=== PATIENT | female | born 1970 | race Caucasian/White ===

== ENCOUNTER 2020-09-07 11:31 | Emergency (ER) | payer OTHER, BC, SELFPAY ==
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
[2020-09-07 11:36] VITALS: BP 141/90; PULSE 94; RESP 17; O2SAT 97
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
--- NOTE | 2020-09-07 12:59 | PC.NURSE ---
Pt took own rxn [place] 7.5, sts I'm just here for the XR of my back
--- NOTE | 2020-09-07 13:16 | PC.NURSE ---
Pt concerned about wait time regarding getting her XR , [employer] Ang aware and states he will see her and put in orders. Pt sitting up on cart, moves all extremities well, non-labored respirations
--- NOTE | 2020-09-07 13:31 | PC.NURSE ---
Pt off floor to XR via cart
--- NOTE | 2020-09-07 14:10 | PC.NURSE ---
Pt ambulated steady gait to BR with crutches (has been using at baseline s/p spinal surgery)
[2020-09-07 14:51] VITALS: BP 124/86; PULSE 94; RESP 18; O2SAT 97
== END 2020-09-07 14:58 | disposition home or self-care (01) ==
PROVIDERS: Emergency Provider Nurse Practitioner; PCP Family Medicine
DX: S16.1XXA Strain of muscle, fascia and tendon at neck level, initial encounter (principal); S39.012A Strain of muscle, fascia and tendon of lower back, initial encounter; S29.011A Strain of muscle and tendon of front wall of thorax, initial encounter; M85.88 Other specified disorders of bone density and structure, other site; M50.322 Other cervical disc degeneration at C5-C6 level; V49.50XA Passenger injured in collision with unspecified motor vehicles in traffic accident, initial encounter
CPT/HCPCS: 71046; 72040; 72100; 72170; 99284

== ENCOUNTER 2021-04-08 13:28 | Outpatient (CLI) | payer BC, SELFPAY ==
--- NOTE | 2021-04-08 14:00 | ECHO_ITS ---
Patient Info Name: Ana Flaherty Age: 50 years : 1970 Gender: Female Ht: 64 in Wt: 168 lbs BSA: 1.88 m2 HR: 94 bpm BP: 130 / 87 mmHg Heart Rhythm: Sinus Rhythm Technical Quality: Good Exam Date: 04/08/2021 1:52 PM Exam Location: [facility] Patient Status: Outpatient Admit Date: 04/08/2021 Staff Ordering Physician: Tristen, Marichuy ASCENCIO [employer] Commander: JESE Attending Provider: Tristen, Marichuy ASCENCIO Exam Type: CA echo doppler color flow Study Info Indications R60.0 - Localized edema Complete two-dimensional, color flow and Doppler transthoracic echocardiogram is performed. Summary 1. Complete two-dimensional, color flow and Doppler transthoracic echocardiogram is performed. 2. Normal left ventricular size and function with good systolic function of all segments. Ejection fraction is 59%. Grade 1 diastolic dysfunction is present. Global longitudinal strain is mildly diminished at -15% suggesting a degree of systolic dysfunction. 3. No significant valve disease. 4. Normal sinus rhythm. Left Ventricle Left ventricular chamber dimension is normal. Left ventricular systolic function is normal, estimated at 55-60%. There is no increased left ventricular wall thickness. Left ventricular septal wall motion is normal. The left ventricular diastolic function is grade I diastolic dysfunction. Global longitudinal strain is mildly elevated at -15 %. Right Ventricle Right ventricular chamber dimension is normal. Right ventricular systolic function is normal. Left Atria Left atrial chamber dimension is normal. Right Atria Right atrial chamber dimension is normal. Aortic Valve The aortic valve is trileaflet. There is no aortic valve sclerosis. There is no aortic valve stenosis. There is no aortic valve regurgitation. Pulmonic Valve The pulmonic valve is normal. There is no pulmonic valve stenosis. There is no pulmonic regurgitation. Mitral Valve The mitral valve has normal leaflets. There is no mitral valve stenosis. There is no mitral valve regurgitation. Tricuspid Valve The tricuspid valve leaflets are normal. There is no significant tricuspid valve stenosis. There is no tricuspid valve regurgitation. No pulmonary hypertension, estimated pulmonary arterial systolic pressure is Empty. Pericardium/Pleural The pericardium appears normal. There is no pericardial effusion. Inferior Vena Cava Normal inferior vena cava with >50% collapse upon inspiration consistent with Empty right atrial pressure, Empty. Aorta The aortic root size at the sinus of Valsalva is normal. The prox ascending aorta size is normal. Left Ventricular Outflow Tract Name Value Normal LVOT 2D LVOT Diameter 2.2 cm LVOT Doppler LVOT Peak Gradient 5 mmHg LVOT Mean Gradient 3 mmHg LVOT VTI 21 cm LVOT VTI/AV VTI Ratio 1.1 LVOT Stroke Volume 82 ml LVOT CO 18.4 l/min LVOT CI
== END 2021-04-08 13:29 | disposition home or self-care (01) ==
PROVIDERS: PCP Nurse Practitioner Adult Health; Visit Provider Nurse Practitioner Adult Health
DX: R60.0 Localized edema (principal)
CPT/HCPCS: 93306